=== PATIENT | male | born 1990 | race Caucasian/White ===

== ENCOUNTER 2021-11-22 17:51 | Emergency (ER) | payer OTHER ==
[~2021-11-22] VITALS: Ht 177.8 cm; Wt 84.0 kg
[2021-11-22 18:49] VITALS: BP 148/73
--- NOTE | 2021-11-22 18:51 | PHYS DOC ---
General Adult EDM: Chief Complaint: LACERATION/AVULSION HPI: HPI: ".. I cut my leg on glass.. ".. " Like a Beer mug.. that was broken.. I was tripped by my Dog 'Jacoby' .. he named after the [employer] players... " Patient is a 31 year old male who presents with 12 cm laceration to Rt garcia while working in yard. Patient states he was tripped up by his dog Jacoby... And he fell on his right leg and hit a broken glass mug. Has active bleeding. Has attempted pressure dressing. Has had intermittent locking at site but shows dressing removed. Recurrent what appears to be arterial bleeding. Distal neurovascular appears grossly intact. Patient has had tetanus vaccinations in the past and feels he is currently up-to-date. Betadine applied to the edges of wound. Patient received compression dressing while obtaining further history and x-rays. Patient denies any travel. No sick ill contacts. Except stated vaccinations and including tetanus. No history immunosuppression. Review of Systems: Review of Systems: Constitutional: Denies fever or chills Eyes: Denies change in visual acuity HENT: Denies nasal congestion or sore throat Respiratory: Denies cough or shortness of breath Cardiovascular: Denies chest pain or edema GI: Denies abdominal pain, nausea, vomiting, bloody stools or diarrhea : Denies dysuria Musculoskeletal: Complains of laceration to right garcia Integument: Denies rash Neurologic: Denies headache, focal weakness or sensory changes Endocrine: Denies polyuria or polydipsia Lymphatic: Denies swollen glands Psychiatric: Denies depression or anxiety Family History: Family History: Noncontributory presentation Current Medications: Current Meds: See nursing for home meds Allergies: Allergies: Allergu Cefaclor Physical Exam: PE: Constitutional: Well developed, well nourished, no acute distress, non-toxic appearance. [] HENT: Normocephalic, atraumatic, bilateral external ears normal, oropharynx moist, no oral exudates, nose normal. [] Eyes: PERRLA, EOMI, conjunctiva normal, no discharge. [] Neck: Normal range of motion, no tenderness, supple, no stridor. [] Cardiovascular:Heart rate regular rhythm, no murmur [] Lungs & Thorax: Bilateral breath sounds clear to auscultation [] Abdomen: Bowel sounds normal, soft, no tenderness, no masses, no pulsatile masses. [] Skin: Warm, dry, no erythema, no rash. [] Back: No tenderness, no CVA tenderness. [] Extremities: No tenderness, no cyanosis, no clubbing, ROM intact, no edema. [] Neurologic: Alert and oriented X 3, normal motor function, normal sensory function, no focal deficits noted. [] Psychologic: Affect normal, judgement normal, mood normal. [] EKG: EKG: [] Radiology/Procedures: Radiology/Procedures: [][address] [address] IMAGING REPORT Signed PATIENT: ANDRES WISEMAN ACCOUNT: [id number] : 1990 LOCATION: ER AGE: 31 SEX: M EXAM STATUS: DEP ER ORD. PHYSICIAN: DEANA SANCHEZ MD REASON: cut on class PROCEDURE: TIBIA FIBULA RIGHT Study: XR RT TIBIA+FIBULA Indication: Injury. Comparison: None. Findings: The tibia and fibula are intact. Bandaging material at the upper aspect of the lower leg. Soft tissue prominence seen on the lateral views anterior to the proximal third of the tibia. No definitive retained radiodense foreign body taking into consideration the bandaging. The partially assessed knee is unremarkable. Incompletely evaluated mild degenerative/chronic changes at the ankle and hindfoot. Impression: No acute fracture. Radiographic manifestations of soft tissue injury at the upper aspect of the lower leg. Taking into consideration overlying bandaging no retained radiodense foreign body is identified. Electronically signed by: PHILIP MEDRANO MD (11/22/2021 11:04 PM) [facility] DICTATED AND SIGNED BY: PHILIP MEDRANO MD DATE: 11/22/212300 CC: DEANA SANCHEZ MD; PCP,NO ~ Heart Score: C/O Chest Pain: N/A Risk Factors: Risk Factors: DM, Current or recent (<one month) smoker, HTN, HLP, family history of CAD, obesity. Risk Scores: Score 0 - 3: 2.5% MACE over next 6 weeks - Discharge Home Score 4 - 6: 20.3% MACE over next 6 weeks - Admit for Clinical Observation Score 7 - 10: 72.7% MACE over next 6 weeks - Early Invasive Strategies Course & Med Decision Making: Course & Med Decision Making Pertinent Labs and Imaging studies reviewed. (See chart for details) Procedure note-laceration wound care-patient received injection of lidocaine 2% to edge of wound. Patient also proceeded injection of Sensorcaine to the edges of wound. Patient laceration was cleaned with gauze scrub and irrigation with over 1 L of normal saline. Irrigation was done in range of motion. Laceration appeared to the depth of the periosteum of the tibia. Patient required 8 internal sutures of Vicryl-3-0. Patient then had 8 external alignment sutures of Vicryl 3-0 mattress type. Patient then had 10 surgical lucius placed. Wound was dressed with bacitracin. Gauze. Patient to elevate leg tonight. Warned patient he may bleeds through the dressing. Would just reinforce dressing tonight. Do not get dressing wet or dirty. If dressing becomes wet it must be removed immediately. Redressed with gauze compressing. Once initial dressing is removed for what ever the reason apply Polysporin 4 times a day. Elevate leg. Monitor for infection. Take Bactrim twice a day. Recommend patient have half of the lucius removed at day 10 and the remainder of the lucius removed today 15. Patient does not have to remove the Vicryl sutures they will dissolve would leave these in as additional support to the laceration that will be under stress from movement. Return if any concerns.. 12 cm laceration. Patient warned he will have a scar [] Marguerite Disclaimer: Marguerite Disclaimer: This electronic medical record was generated, in whole or in part, using a voice recognition dictation system. Departure Departure: Referrals: PCP,NO (PCP) Scripts Ibuprofen (IBUPROFEN) 400 Mg Tablet 600 MG PO QIDPRN for pain, #120 TAB Prov: DEANA SANCHEZ MD 11/22/21 Acetaminophen (ACETAMINOPHEN) 500 Mg Tablet 1000 MG PO QIDPRN PRN for PAIN, #120 TAB Prov: DEANA SANCHEZ MD 11/22/21 Bacitracin/Polymyxin B Sulfate (POLYSPORIN OINTMENT) 28.3 Gm Oint...g. 28.3 GM TP QID for laceration for 30 Days, MISC Prov: DEANA SANCHEZ MD 11/22/21 Sulfamethoxazole/Trimethoprim (BACTRIM DS TABLET) 1 Each Tablet 1 TAB PO BID for deep wound for 10 Days, #20 TAB 0 Refills Prov: DEANA SANCHEZ MD 11/22/21 Dragon Disclaimer This chart was dictated in whole or in part using Voice Recognition software in a busy, high-work load, and often noisy Emergency Department environment. It may contain unintended and wholly unrecognized errors or omissions. Dragon Disclaimer This chart was dictated in whole or in part using Voice Recognition software in a busy, high-work load, and often noisy Emergency Department environment. It may contain unintended and wholly unrecognized errors or omissions. DEANA SANCHEZ MD Nov 22, 2021 18:51
[2021-11-22] MEDS ORDERED: HYDROcodon/IBUPROFEN 7.5/200MG 1 TAB TABLET PO ONE (19:00)
[2021-11-22] MEDS ORDERED: LIDOCAINE 2% 20 ML VIAL. IJ ONE (19:00)
[2021-11-22] MEDS ORDERED: SMZ/TMP 800/160MG TABLET. PO ONE (19:00)
[2021-11-22] MEDS ORDERED: BACITRACIN ZINC TOPICAL OINT PACKET. TP ONE (19:00)
[2021-11-22] MEDS ORDERED: BUPIVACAINE PF 0.75% 10 ML VIAL IJ ONE (19:00)
[2021-11-22] MEDS ORDERED: SULF1TAB24 PO (20:24)
[2021-11-22] MEDS ORDERED: BACI28.34 TP (20:24)
[2021-11-22] MEDS ORDERED: ACET500T68 PO (20:27)
[2021-11-22] MEDS ORDERED: IBUP400T18 PO (20:27)
--- NOTE | 2021-11-22 23:06 | RAD ---
Study: XR RT TIBIA+FIBULA Indication: Injury. Comparison: None. Findings: The tibia and fibula are intact. Bandaging material at the upper aspect of the lower leg. Soft tissue prominence seen on the lateral views anterior to the proximal third of the tibia. No definitive anai ined radiodense foreign body taking into consideration the bandaging. The partially assessed knee is unremarkable. Incompletely evaluated mild degenerative/chronic changes at the ankle and hindfoot. Impression: No acute fracture. Radiographic manifestations of soft tissue injury at the upper aspect of the lower leg. Taking into consideration overlying bandaging no retained radiodense foreign body is identified . Electronically signed by: PHILIP MEDRANO MD (11/22/2021 11:04 PM) [facility]
== END 2021-11-22 20:40 | disposition home or self-care (01) ==
LOC: ER 17:51
DX: S81.811A Laceration without foreign body, right lower leg, initial encounter (principal); W01.110A Fall on same level from slipping, tripping and stumbling with subsequent striking against sharp glass, initial encounter; Y93.89 Activity, other specified; Y92.096 Garden or yard of other non-institutional residence as the place of occurrence of the external cause; Y99.8 Other external cause status
CPT/HCPCS: 12004; 73590; 99283; J2001; J3490